=== PATIENT | female | born 1955 | race African-American/Black ===

== ENCOUNTER 2017-04-19 19:13 | Emergency (ER) | payer OTHER ==
[~2017-04-19] VITALS: Ht 167.6 cm; Wt 46.4 kg
[~2017-04-19 19:13] MED LIST: HYDR-3971 PO; OXYB5 PO
[2017-04-19] MEDS ORDERED: MULT-1203 PO (19:50)
[2017-04-19] MEDS ORDERED: MELO-107 PO (19:50)
[2017-04-19] MEDS ORDERED: IBUP-2354 PO (19:50)
[2017-04-19] MEDS ORDERED: KETOROLAC TROMETHAMINE 30 MG/ML VIAL IM ONE (23:00)
[2017-04-19] MEDS ORDERED: MORPHINE SULFATE 2 MG/ML SYRINGE IM ONE (23:00)
[2017-04-19 23:34] VITALS: BP 118/71
== END 2017-04-19 23:44 | disposition home or self-care (01) ==
LOC: EMS 19:15
DX: S83.91XA Sprain of unspecified site of right knee, initial encounter (principal); G43.909 Migraine, unspecified, not intractable, without status migrainosus; F17.210 Nicotine dependence, cigarettes, uncomplicated; W01.0XXA Fall on same level from slipping, tripping and stumbling without subsequent striking against object, initial encounter; Y93.01 Activity, walking, marching and hiking; Y92.89 Other specified places as the place of occurrence of the external cause; Y99.8 Other external cause status
CPT/HCPCS: 29505; 73562; 96372; 99284; J1885; J2270

== ENCOUNTER 2017-04-25 21:08 | Emergency (ER) | payer OTHER ==
[~2017-04-25] VITALS: Ht 162.6 cm; Wt 45.5 kg
[~2017-04-25 21:08] MED LIST changes: +IBUP-2354 PO; +MELO-107 PO; +MULT-1203 PO
[2017-04-26 01:20] VITALS: BP 126/78
[2017-04-26] MEDS ORDERED: KETOROLAC TROMETHAMINE 30 MG/ML VIAL IM ONE (01:45)
== END 2017-04-26 01:48 | disposition home or self-care (01) ==
LOC: EMS 21:09
DX: M23.91 Unspecified internal derangement of right knee (principal); G43.909 Migraine, unspecified, not intractable, without status migrainosus; G89.29 Other chronic pain; F17.210 Nicotine dependence, cigarettes, uncomplicated; Z79.899 Other long term (current) drug therapy; Z90.710 Acquired absence of both cervix and uterus; Z98.51 Tubal ligation status
CPT/HCPCS: 96372; 99283; J1885

== ENCOUNTER 2017-09-15 13:31 | Emergency (ER) | payer OTHER ==
[~2017-09-15] VITALS: Ht 167.6 cm; Wt 57.3 kg
[2017-09-15] MEDS ORDERED: HYDROCODONE/ACETAMINOPHEN 5-325 MG TABLET PO ONE (15:00)
[2017-09-15 16:16] VITALS: BP 138/76
== END 2017-09-15 16:36 | disposition home or self-care (01) ==
LOC: EMS 13:33
DX: S00.03XA Contusion of scalp, initial encounter (principal); H11.31 Conjunctival hemorrhage, right eye; F17.210 Nicotine dependence, cigarettes, uncomplicated; G43.909 Migraine, unspecified, not intractable, without status migrainosus; Z90.710 Acquired absence of both cervix and uterus; Z79.899 Other long term (current) drug therapy; Y04.2XXA Assault by strike against or bumped into by another person, initial encounter; Y93.89 Activity, other specified; Y92.89 Other specified places as the place of occurrence of the external cause; Y99.8 Other external cause status
CPT/HCPCS: 70450; 70486; 99284

== ENCOUNTER 2020-07-03 19:13 | Emergency (ER) | payer OTHER ==
[~2020-07-03] VITALS: Ht 167.6 cm; Wt 51.8 kg
[~2020-07-03 19:13] MED LIST changes: -HYDR-3971 PO; +HYDR-4072 PO; -IBUP-2354 PO; +IBUP-2759 PO
[2020-07-03] MEDS ORDERED: TraMADol HCL 50 MG TABLET PO ONE (19:45)
[2020-07-03 21:36] VITALS: BP 144/67
== END 2020-07-03 21:43 | disposition home or self-care (01) ==
LOC: EMS 19:13
DX: S52.591A Other fractures of lower end of right radius, initial encounter for closed fracture (principal); F17.210 Nicotine dependence, cigarettes, uncomplicated; G43.909 Migraine, unspecified, not intractable, without status migrainosus; Z79.899 Other long term (current) drug therapy; X58.XXXA Exposure to other specified factors, initial encounter; Y93.89 Activity, other specified; Y92.89 Other specified places as the place of occurrence of the external cause; Y99.8 Other external cause status
CPT/HCPCS: 72170; 99284; 71045-TC

== ENCOUNTER 2020-11-12 21:29 | Emergency (ER) | payer OTHER ==
[~2020-11-12] VITALS: Ht 167.6 cm; Wt 50.0 kg
[2020-11-12] MEDS ORDERED: LIDOCAINE 5% TRANSDERMAL PATCH TD ONE (22:30)
[2020-11-12] MEDS ORDERED: ACETAMINOPHEN 500 MG TABLET PO ONE (22:30)
[2020-11-13 00:28] VITALS: BP 109/66
== END 2020-11-13 00:37 | disposition home or self-care (01) ==
LOC: EMS 21:30
DX: M54.6 Pain in thoracic spine (principal); J45.909 Unspecified asthma, uncomplicated; G43.909 Migraine, unspecified, not intractable, without status migrainosus; F17.210 Nicotine dependence, cigarettes, uncomplicated
CPT/HCPCS: 71250; 99284; Z7502; Z7610

== ENCOUNTER 2021-01-13 09:23 | Emergency (ER) | payer OTHER ==
[~2021-01-13] VITALS: Ht 167.6 cm; Wt 54.5 kg
[~2021-01-13 09:23] MED LIST changes: -OXYB5 PO; +OXYB5TAB20 PO
[2021-01-13] MEDS ORDERED: HYDROCODONE/ACETAMINOPHEN 5-325 MG TABLET PO ONE (09:45)
[2021-01-13 10:30] VITALS: BP 122/91
== END 2021-01-13 10:58 | disposition home or self-care (01) ==
LOC: EMS 09:31
DX: S63.502A Unspecified sprain of left wrist, initial encounter (principal); J45.909 Unspecified asthma, uncomplicated; G43.909 Migraine, unspecified, not intractable, without status migrainosus; G89.29 Other chronic pain; F17.200 Nicotine dependence, unspecified, uncomplicated; Z90.710 Acquired absence of both cervix and uterus; W19.XXXA Unspecified fall, initial encounter; Y93.89 Activity, other specified; Y92.89 Other specified places as the place of occurrence of the external cause; Y99.8 Other external cause status
CPT/HCPCS: 99284; 73110-TC; 73130-TC; Z7502; Z7610

== ENCOUNTER 2021-01-20 12:21 | Emergency (ER) | payer OTHER ==
[~2021-01-20] VITALS: Ht 167.6 cm; Wt 54.5 kg
[2021-01-20] MEDS ORDERED: ACETAMINOPHEN 325 MG TABLET PO ONE (13:45)
[2021-01-20 15:08] VITALS: BP 103/67
== END 2021-01-20 16:08 | disposition home or self-care (01) ==
LOC: EMS 12:21
DX: S09.90XA Unspecified injury of head, initial encounter (principal); M25.532 Pain in left wrist; J45.909 Unspecified asthma, uncomplicated; F17.210 Nicotine dependence, cigarettes, uncomplicated; Z79.899 Other long term (current) drug therapy; W18.39XA Other fall on same level, initial encounter; Y93.64 Activity, baseball; Y92.89 Other specified places as the place of occurrence of the external cause; Y99.8 Other external cause status
CPT/HCPCS: 70450; 73503; 99284

== ENCOUNTER 2021-07-06 11:05 | Emergency (ER) | payer OTHER ==
[~2021-07-06] VITALS: Ht 160 cm; Wt 54.5 kg
[2021-07-06] MEDS ORDERED: ACETAMINOPHEN 325 MG TABLET PO ONE (12:15)
[2021-07-06] MEDS ORDERED: ACET-784 PO (14:17)
[2021-07-06 15:19] VITALS: BP 148/68
== END 2021-07-06 15:28 | disposition home or self-care (01) ==
LOC: EMS 11:08
DX: S20.212A Contusion of left front wall of thorax, initial encounter (principal); M25.462 Effusion, left knee; J45.909 Unspecified asthma, uncomplicated; G43.909 Migraine, unspecified, not intractable, without status migrainosus; F17.210 Nicotine dependence, cigarettes, uncomplicated; G89.29 Other chronic pain; Z90.710 Acquired absence of both cervix and uterus; W01.0XXA Fall on same level from slipping, tripping and stumbling without subsequent striking against object, initial encounter; Y93.89 Activity, other specified; Y92.488 Other paved roadways as the place of occurrence of the external cause; Y99.8 Other external cause status
CPT/HCPCS: 71101; 73552; 99284; 73562-TC; Z7502; Z7610

== ENCOUNTER 2023-08-16 12:22 | Inpatient (IN) | payer MEDICARE, OTHER ==
[~2023-08-16] VITALS: Ht 160 cm; Wt 46.4 kg
[~2023-08-16 12:22] MED LIST changes: +ACET-784 PO; -IBUP-2759 PO; +IBUP-45 PO
[2023-08-16] MEDS: TraMADol HCL 50 MG TABLET PO ONE (15:03)
[2023-08-16 22:15] LABS: BASOPHILS % (AUTO) 0.6 % (0.0-2.0); EOSINOPHILS % (AUTO) 0.1 % (1.0-6.0); HEMATOCRIT 40.4 % (36-46); HEMOGLOBIN 13.7 g/dL (12.0-16.0); LYMPHOCYTES # (AUTO) 0.6 K/uL (1.0-4.8); LYMPHOCYTES % (AUTO) 15.1 % (22.0-44.0); MEAN CORPUSCULAR HEMOGLOBIN 34.8 pg (26.0-34.0); MEAN CORPUSCULAR VOLUME 102 fL (80-100); MONOCYTES # (AUTO) 0.7 K/uL (0.1-1.0); NEUTROPHILS # (AUTO) 2.7 K/uL (1.8-7.7); NEUTROPHILS % (AUTO) 67.2 % (40.0-70.0); PLATELET COUNT (AUTO) 212 K/uL (150-450); RED BLOOD CELL COUNT(AUTO) 3.95 MIL/uL (4.00-5.20); RED CELL DISTRIBUTION WIDTH 13.4 % (11.5-14.5)
[2023-08-16] MEDS ORDERED: ONDANSETRON HCL 4 MG/2 ML VIAL IVP PRN (22:15)
[2023-08-16] MEDS ORDERED: ACETAMINOPHEN 325 MG TABLET PO PRN (22:15)
[2023-08-16] MEDS: DOCUSATE SODIUM 100 MG CAPSULE PO SCH (22:15)
[2023-08-16] MEDS ORDERED: SODIUM PHOSPHATE,MONO-DIBASIC 133 ML ENEMA PR PRN (22:15)
[2023-08-16] MEDS ORDERED: KETOROLAC TROMETHAMINE 15 MG/ML VIAL IVP PRN (22:15)
[2023-08-16 22:24] LABS: ANION GAP 12 mmol/L (8-16); CALCIUM, TOTAL 8.7 mg/dL (8.8-10.5); CARBON DIOXIDE 27 mmol/L (22-29); CHLORIDE 95 mmol/L (98-107); CREATININE 0.74 mg/dL (0.60-1.30); GLOMERULAR FILTR. RATE CALC > 60 mL/min (>60); GLUCOSE,RANDOM 139 mg/dL (70-110); POTASSIUM 3.7 mmol/L (3.5-5.1); SODIUM SERUM 134 mmol/L (136-145); UREA NITROGEN, BLOOD 14 mg/dL (7-18)
[2023-08-16 22:42] LABS: ALANINE AMINOTRANSFERASE 28 U/L (12-78); ALBUMIN 3.5 g/dL (3.4-5.0); ALKALINE PHOSPHATASE 135 U/L (46-116); ASPARTATE AMINOTRANSFERASE 42 U/L (15-37); BILIRUBIN,TOTAL 0.6 mg/dL (0.1-1.0); TOTAL PROTEIN, SERUM 8.1 g/dL (6.4-8.2)
[2023-08-16 22:44] LABS: TROPONIN I-HIGH SENSITIVITY 6 ng/L (<51)
[2023-08-16] MEDS ORDERED: NALOXONE HCL 1 MG/ML 2 ML SYRINGE IVP PRN (22:45)
[2023-08-16] MEDS ORDERED: PIPERACILLIN/TAZO 3.375 GM/D5W 50 ML IV ONE (23:00)
[2023-08-16] MEDS: PIPERACILLIN/TAZO 3.375 GM/D5W 50 ML IV SCH (23:58)
[2023-08-16] MEDS: HEPARIN SODIUM,PORCINE 5,000 UNITS/ML VIAL SQ SCH (23:58)
[2023-08-16] MEDS: SODIUM CHLORIDE 0.9% 1,000 ML IV SCH (23:58)
[2023-08-17] VITALS (11 sets, daily range): BP systolic 104–144; BP diastolic 45–96; PULSE 79–85; RESP 17–20; TEMP 97.5–100; O2SAT 95–98
[2023-08-17] MEDS: MORPHINE SULFATE 2 MG/ML SYRINGE IVP PRN (01:11)
[2023-08-17] MEDS ORDERED: LORazepam 2 MG TABLET PO PRN (02:15)
[2023-08-17] MEDS: ACETAMINOPHEN 325 MG TABLET PO SCH (09:00)
[2023-08-17] MEDS ORDERED: DOCUSATE SODIUM 100 MG CAPSULE PO SCH (09:00)
[2023-08-17] MEDS: -LIDODERM PATCH NOTE- MISC SCH (09:00)
[2023-08-17] MEDS ORDERED: LORazepam 2 MG/ML VIAL IVP PRN (10:00)
[2023-08-17] MEDS ORDERED: MORPHINE SULFATE 2 MG/ML SYRINGE IVP PRN (10:15)
[2023-08-17 17:59] LABS: APPEARANCE,URINE CLEAR (CLEAR); BILIRUBIN,URINE NEGATIVE (NEGATIVE); COLOR,URINE YELLOW (YELLOW); GLUCOSE, URINE (UA) NEGATIVE (NEGATIVE); KETONES,URINE NEGATIVE (NEGATIVE); LEUKOCYTE ESTERASE ,URINE NEGATIVE (NEGATIVE); NITRATE,URINE NEGATIVE (NEGATIVE); OCCULT BLOOD,URINE NEGATIVE (NEGATIVE); PROTEIN,URINE TRACE mg/dL (NEGATIVE); SPECIFIC GRAVITIY, URINE 1.021 (1.003-1.030); UROBILINOGEN,URINE <=1.0 mg/dL (<=1.0)
[2023-08-17 18:07] LABS: ALCOHOL, URINE DRUG SCREEN NEGATIVE (NEGATIVE); AMPHET/METH SCREEN,URINE NEGATIVE (NEGATIVE); BARBITURATE SCREEN, URINE NEGATIVE (NEGATIVE); BENZODIAZEPINES SCREEN,URINE NEGATIVE (NEGATIVE); CANNABINOID SCREEN,URINE NEGATIVE (NEGATIVE); COCAINE SCREEN,URINE POSITIVE (NEGATIVE); METHADONE SCREEN, URINE NEGATIVE (NEGATIVE); OPIATE SCREEN,URINE POSITIVE (NEGATIVE); PHENCYCLIDINE SCREEN,URINE NEGATIVE (NEGATIVE)
[2023-08-17] MEDS: LIDOCAINE 5% TRANSDERMAL PATCH TD SCH (23:50)
[2023-08-18 03:55] VITALS: BP 108/51; PULSE 78; RESP 18; TEMP 98.2; O2SAT 93
[2023-08-18] MEDS ORDERED: LORazepam 2 MG TABLET PO PRN (07:00)
[2023-08-18 07:58] VITALS: RESP 17
[2023-08-18] MEDS: MULTIVITAMINS WITH MINERALS, THERAPEUTIC TABLET PO SCH (08:34)
[2023-08-18] MEDS ORDERED: LORazepam 2 MG TABLET PO SCH (09:00)
[2023-08-20] MEDS ORDERED: LORazepam 1 MG TABLET PO PRN (07:00)
[2023-08-20] MEDS ORDERED: LORazepam 1 MG TABLET PO SCH (09:00)
[2023-08-21] MEDS ORDERED: LORazepam 1 MG TABLET PO PRN (07:00)
== END 2023-08-18 19:05 | disposition home or self-care (01) | DRG 930 ==
LOC: EMS 12:23 → 6S 22:22
PROVIDERS: ADMIT Internal Medicine; ATTEND Internal Medicine
DX: S72.112A Displaced fracture of greater trochanter of left femur, initial encounter for closed fracture (principal); S32.591A Other specified fracture of right pubis, initial encounter for closed fracture; E43 Unspecified severe protein-calorie malnutrition; G43.909 Migraine, unspecified, not intractable, without status migrainosus; G89.29 Other chronic pain; K52.89 Other specified noninfective gastroenteritis and colitis; J44.9 Chronic obstructive pulmonary disease, unspecified; F10.20 Alcohol dependence, uncomplicated; F15.10 Other stimulant abuse, uncomplicated; F17.210 Nicotine dependence, cigarettes, uncomplicated; I10 Essential (primary) hypertension; W18.39XA Other fall on same level, initial encounter; Y93.89 Activity, other specified; Y92.89 Other specified places as the place of occurrence of the external cause; Y99.8 Other external cause status; Z98.51 Tubal ligation status; Z87.442 Personal history of urinary calculi; Z90.710 Acquired absence of both cervix and uterus; Z79.899 Other long term (current) drug therapy
CPT/HCPCS: 71045; 72100; 73521; 73700; 80053; 80307; 81003; 84484; 85025; 97116; 97161; 97166; 97530; 97535; 99285; J1644; J2270; J2543; J7030; 36415-L1; 36415-TC

== ENCOUNTER → 2023-11-16 | Emergency (ER) | payer MEDICARE, OTHER ==
[~2023-11-16] VITALS: Ht 160 cm; Wt 40.9 kg
[~2023-11-16] MED LIST changes: -ACET-784 PO; -HYDR-4072 PO; -IBUP-45 PO; -MELO-107 PO; -OXYB5TAB20 PO
[2023-11-16 13:03] VITALS: TEMP 98.3
[2023-11-16 13:42] LABS: BASOPHILS % (AUTO) 0.3 % (0.0-2.0); EOSINOPHILS % (AUTO) 0.3 % (1.0-6.0); HEMATOCRIT 38.4 % (36-46); HEMOGLOBIN 12.7 g/dL (12.0-16.0); LYMPHOCYTES # (AUTO) 0.8 K/uL (1.0-4.8); MEAN CORPUSCULAR HEMOGLOBIN 34.7 pg (26.0-34.0); MEAN CORPUSCULAR VOLUME 105 fL (80-100); MONOCYTES # (AUTO) 0.7 K/uL (0.1-1.0); MONOCYTES % (AUTO) 17.8 % (2.0-9.0); NEUTROPHILS # (AUTO) 2.4 K/uL (1.8-7.7); NEUTROPHILS % (AUTO) 60.6 % (40.0-70.0); PLATELET COUNT (AUTO) 250 K/uL (150-450); RED BLOOD CELL COUNT(AUTO) 3.66 MIL/uL (4.00-5.20); RED CELL DISTRIBUTION WIDTH 13.7 % (11.5-14.5)
[2023-11-16 13:51] LABS: ANION GAP 7 mmol/L (8-16); CALCIUM, TOTAL 8.9 mg/dL (8.8-10.5); CARBON DIOXIDE 27 mmol/L (22-29); CHLORIDE 101 mmol/L (98-107); CREATININE 0.86 mg/dL (0.60-1.30); GLOMERULAR FILTR. RATE CALC > 60 mL/min (>60); GLUCOSE,RANDOM 102 mg/dL (70-110); POTASSIUM 3.9 mmol/L (3.5-5.1); SODIUM SERUM 135 mmol/L (136-145); UREA NITROGEN, BLOOD 11 mg/dL (7-18)
[2023-11-16 13:52] LABS: LIPASE 59 U/L (16-77)
[2023-11-16 14:12] LABS: TROPONIN I-HIGH SENSITIVITY Less Than 4 ng/L (<51)
[2023-11-16] MEDS: SODIUM CHLORIDE 0.9% 500 ML IV ONE (14:12)
[2023-11-16 16:30] VITALS: BP 135/81; PULSE 81; RESP 16
== END | disposition still patient (30) ==
LOC: EMS 12:59
DX: R19.7 Diarrhea, unspecified (principal); J45.909 Unspecified asthma, uncomplicated; G43.909 Migraine, unspecified, not intractable, without status migrainosus; G89.29 Other chronic pain; F17.210 Nicotine dependence, cigarettes, uncomplicated; F10.90 Alcohol use, unspecified, uncomplicated; Z90.710 Acquired absence of both cervix and uterus; Z98.51 Tubal ligation status; Z98.890 Other specified postprocedural states; Y90.9 Presence of alcohol in blood, level not specified
CPT/HCPCS: 80048; 83690; 84484; 85025; 99283